=== PATIENT | male | born 1945 | race Caucasian/White ===

== ENCOUNTER → 2018-10-10 08:17 | Outpatient (CLI) | payer MEDICARE, SELFPAY ==
[2018-10-10 09:29] LABS: Alanine Aminotransferase 23 IU/L (21-72); Albumin 4.2 g/dL (3.5-5.0); Albumin Globulin Ratio 1.4 (1.0-2.8); Alkaline Phosphatase 61 U/L (38-126); Aspartate Aminotransferase 21 IU/L (17-59); BUN Creatinine Ratio 23.8 (6-22); Bilirubin Total 0.8 mg/dL (0.2-1.3); Blood Urea Nitrogen 19 mg/dL (9-20); Calcium 9.6 mg/dL (8.4-10.2); Carbon Dioxide 25 mmol/L (22-32); Chloride 108 mmol/L (98-107); Cholesterol 228 mg/dL (140-199); Estimated Glomerular Filt Rate > 60.0 mL/min (>60); Glucose 117 mg/dL (80-110); HDL Cholesterol 47 mg/dL (40-60); HEMOLYSIS < 15 (0-50); LDL Cholesterol Calculated 164 mg/dL (<100); Potassium 4.4 mmol/L (3.4-5.1); Sodium 143 mmol/L (137-145); Total Protein 7.2 g/dL (6.3-8.2); Triglycerides 87 mg/dL (35-150)
[2018-10-10 10:00] LABS: Prostate Specific Antigen Scrn 1.88 ng/mL (0.1-4.0)
== END ==
PROVIDERS: PCP Internal Medicine; Visit Provider Internal Medicine
DX: E03.0 Congenital hypothyroidism with diffuse goiter (principal); E78.00 Pure hypercholesterolemia, unspecified; Z12.5 Encounter for screening for malignant neoplasm of prostate
CPT/HCPCS: 36415; 80053; 80061; G0103

== ENCOUNTER 2019-04-28 14:27 | Observation (INO) | payer MEDICARE, SELFPAY ==
[2019-04-28] VITALS (16 sets, daily range): BP systolic 150–182; BP diastolic 78–94; PULSE 69–99; RESP 9–18; TEMP 35.8–37; O2SAT 94–100; BMI 29.9
--- NOTE | 2019-04-28 14:41 | DI.CT.S_ITS ---
PROCEDURE: CT ABDOMEN PELVIS W CON INDICATIONS: Right lower quadrant abdominal pain TECHNIQUE: After the administration of intravenous contrast, 5 mm thick sections acquired from the diaphragm to the symphysis. 5 mm coronal and sagittal reformats were acquired. For radiation dose reduction, the following was used: automated exposure control, adjustment of mA and/or kV according to patient size. COMPARISON: None. FINDINGS: Image quality: Excellent. ABDOMEN: Lung bases: Lung bases are clear. Heart size is normal. Solid organs: Liver is normal in size and enhancement. Gallbladder is within normal limits. Common hepatic duct measures 16 mm diameter. Common bile duct measures 9 mm diameter. There are multiple high density foci within the common hepatic and common bile duct, largest of which is in the distal common bile duct measuring 10 mm. Pancreas enhances normally. Spleen is normal in size and enhancement. No adrenal nodules. Kidneys demonstrate normal size and enhancement, without hydronephrosis. Nonobstructing 3 mm calculus within the inferior pole left kidney. Excess are present bilaterally. Peritoneum and bowel: Small hiatal hernia. Mildly distended distal ileum within the right inguinal hernia. 27 mm diameter diverticulum of the 2nd portion of the duodenum. Bowel loops demonstrate otherwise normal wall thickness and caliber. No free fluid or air. Appendix not seen. No evidence of appendicitis. Nodes and vessels: No retroperitoneal or mesenteric adenopathy by size criteria. Aorta and inferior vena cava are normal in size. Miscellaneous: No ventral hernias. PELVIS: Genitourinary: Bladder wall thickness is normal. Miscellaneous: There is a 63 mm diameter right internal hernia containing a loop of distal small bowel. There is mild distention of the herniated distal ileum measuring 24 mm. Bones: No suspicious bony lesions. No vertebral body compression fractures. IMPRESSION: 1. Right inguinal hernia containing a loop of distal ileum, which is mildly distended, suggestive of incarceration. No significant proximal small bowel dilatation to indicate long-standing obstruction. 2. Multiple choledocholiths associated with intrahepatic and extrahepatic biliary ductal dilatation. 3. Nonobstructing left renal calculus. 4. Small hiatal hernia. Dictated by: Alla Booth M.D. on 04/28/2019 at 15:16 Approved by: Alla Booth M.D. on 04/28/2019 at 15:21
--- NOTE | 2019-04-28 14:41 | ED.EXTPRO ---
HPI - Extremity Problem General Chief complaint: Extremity Problem,Nontraumatic Stated complaint: Groin Pain Time Seen by Provider: 04/28/19 14:30 Source: patient and EMS Mode of arrival: EMS Limitations: no limitations History of Present Illness HPI Narrative: 73-year-old male brought in by EMS for right groin pain. Patient states that earlier today he had an onset of right groin pain. States that was a fairly sudden onset. No urinary symptoms. No bowel symptoms. Has never had anything like this in the past. Does not radiate to his testicle. That the potentially had a kidney stone although he has never had 1 of these in the past. Has not tried anything for symptoms prior to arrival. Had a very difficult time getting into the EMS gurney secondary to pain and moving his right hip. No trauma Related Data Home Medications Medication Instructions Recorded Confirmed ACETAMINOPHEN 650 mg PO Q6HP #0 02/05/12 simvastatin 10 mg PO QDAY #0 02/05/12 Allergies Allergy/AdvReac Type Severity Reaction Status Date / Time Sulfa (Sulfonamide Allergy Unknown Unverified 04/28/19 14:33 Antibiotics) SULFA Allergy Unknown Uncoded 07/05/17 13:03 Review of Systems Constitutional Constitutional: Denies fatigue and Denies frequent falls Cardiovascular Cardiovascular: Denies chest pain and Denies dyspnea Respiratory Respiratory: Denies dyspnea Gastrointestinal Gastrointestinal: Reports abdominal pain, Denies change in stool character, Denies diarrhea, Denies nausea and Denies vomiting Genitourinary Genitourinary: Denies dysuria Comments: Right groin pain Musculoskeletal Musculoskeletal: Denies myalgias and Denies arthralgias Integumentary/Breasts Skin/Breast: Denies lesions and Denies rash Neurologic Neurologic: Denies behavioral changes and Denies frequent falls Psychiatric Psychiatric: Denies behavioral changes Endocrine Endocrine: Denies fatigue Hematologic/Lymphatic Hematologic/Lymphatic: Denies easy bleeding and Denies easy bruising Patient History Surgical History No pertinent past surgical history (Acute) Social History Smoking Status: Never smoker Smoking Status: Never smoker alcohol intake frequency: 0-2 drinks per day Substance Use Type: does not use Exam Initial Vital Signs Initial Vital Signs: Vital Signs Temperature 97.5 F L 04/28/19 14:30 Pulse Rate 72 04/28/19 14:30 Respiratory Rate 18 04/28/19 14:30 Blood Pressure 182/88 H 04/28/19 14:30 Pulse Oximetry 98 04/28/19 14:30 Const General: cooperative, comfortable, well developed and well groomed Limitations: mental status not altered HENMT Head: normal to inspection and normocephalic Neck Neck: no meningeal signs Resp Effort & Inspection: normal respiratory effort Cardio Rate: regular rate GI Inspection: non-distended Palpation: soft and No firm Other: Tender right inguinal area with what appears to be bowel External: normal external exam and circumcised Penis: normal penis Scrotum: scrotum normal Testes: normal Skin Lesions: no lesions Rashes: no rashes Neuro General: alert and awake Cognition: normal cognition Speech: speech normal Extrem General: normal to inspection and capillary refill normal Psych Appearance: grossly normal and well kempt Scores GCS Yariel coma scale eye opening: Spontaneous Yariel coma scale verbal response: Orientated Coffey coma scale motor response: Obey commands Yariel coma scale total score: 15 Course Orders Ordered: ED Orders 04/28/19 14:30 Complete Blood Count AUTO DIFF Stat Comprehensive Metabolic Panel Stat Lipase Stat 04/28/19 14:41 CT abdomen pelvis w con Stat 04/28/19 15:55 Lactate (Lactic Acid) Stat 04/28/19 16:59 Consult to General Surgery Stat Sodium Chloride (Normal Saline 0.9%) 1,000 mls @ 125 mls/hr IV CONT ROBERT Discontinued Medications Hydrocodone Bitart/Acetaminophen ([place] 5/325) 1 tab PO NOW ONE Stop: 04/28/19 15:24 Last Admin: 04/28/19 15:28 Dose: 1 tab Documented by: CVANCE Vital Signs Vital signs: Vital Signs - 8 hr 04/28/19 14:30 04/28/19 15:33 04/28/19 17:08 Temperature 97.5 F L Pulse Rate 72 85 92 H Respiratory Rate 18 16 Blood Pressure 182/88 H Blood Pressure [Left Arm] 169/81 H 160/87 H Pulse Oximetry 98 97 98 MDM - Extremity (Nontraumatic) Lab Data Attestation: I reviewed the patient's lab results. Result diagrams: 04/28/19 14:30 04/28/19 14:30 Labs: Lab Results 04/28/19 04/28/19 04/28/19 Range/Units 14:30 14:30 15:55 WBC 9.1 (4.5-11.0) X10^3/uL RBC 5.28 (4.5-5.9) X10^6/uL Hgb 16.7 (13.5-17.5) g/dL Hct 48.9 (41-53) % MCV 92.6 (80-100) fL MCH 31.6 (26-34) PG MCHC 34.1 (30-36) % RDW 13.9 (11.6-14.8) % Plt Count 171 (150-400) X10^3/uL Neut % (Auto) 83.2 H (50-75) % Lymph % (Auto) 10.9 L (25-40) % [place] % (Auto) 5.2 (3-14) % Eos % (Auto) 0.2 L (2-4) % Baso % (Auto) 0.5 (0-2) % Neut # (Auto) 7600 H (7871-4379) /uL Lymph # (Auto) 1000 L (5374-9287) /uL [place] # (Auto) 500 (0-900) /uL Eos # (Auto) 0 (0-450) /uL Baso # (Auto) 0 (0-100) /uL Sodium 140 (137-145) mmol/L Potassium 4.0 (3.4-5.1) mmol/L Chloride 100 (98-107) mmol/L Carbon Dioxide 27 (22-32) mmol/L BUN 20 (9-20) mg/dL Creatinine 0.80 (0.66-1.25) mg/dL Estimated GFR > 60.0 (>60) mL/min BUN/Creatinine Ratio 25.0 H (6-22) Glucose 161 H (80-110) mg/dL Lactate 2.3 H (0.7-2.1) mmol/L Calcium 9.8 (8.4-10.2) mg/dL Total Bilirubin 0.8 (0.2-1.3) mg/dL AST 28 (17-59) IU/L ALT 30 (<50) IU/L Alkaline Phosphatase 56 (38-126) U/L Total Protein 8.4 H (6.3-8.2) g/dL Albumin 4.7 (3.5-5.0) g/dL Globulin 3.7 (1.7-4.1) g/dL Albumin/Globulin Ratio 1.3 (1.0-2.8) Lipase 98 (23-300) U/L Urine Dip Bedside Urine Glucose 250 mg/dl Bedside Urine Bilirubin - Negative Bedside Urine Ketone + 15 Urine Specific [place] 1.020 Bedside Urine Occult Blood - Negative Bedside Urine pH 5.5 Bedside Urine Protein - Negative Bedside Urine Urobilinogen - Negative Bedside Urine Nitrite - Negative Bedside Urine Leukocytes - Negative Esterase Imaging Data CT scan - abdomen/pelvis: Radiologist's Impression: Right inguinal hernia containing a loop of distal ileum, which is mildly distended, suggestive of incarceration. No significant proximal small bowel dilation to indicate longstanding obstruction Multiple choledocholithiasis associated with intrahepatic and extrahepatic biliary ductal dilation Nonobstructing left renal calculus Small hiatal hernia MDM Narrative Medical decision making narrative: Patient is nontoxic. CT scan concerning for right-sided incarcerated inguinal hernia. This does fit with his physical exam. Discussed the case with Dr. Fajardo who will come and evaluate the patient in the emergency department. Discussed the admission with the patient. He expressed understanding and agreement. Discharge Plan Departure Patient Disposition: Admitted as Observation Clinical Impression: Incarcerated inguinal hernia
[2019-04-28 14:57] LABS: Add Manual Diff / Slide Review NO; Basophils Absolute Auto 0 /uL (0-100); Basophils Percent Auto 0.5 % (0-2); Eosinophils Absolute Auto 0 /uL (0-450); Eosinophils Percent Auto 0.2 % (2-4); Hematocrit 48.9 % (41-53); Hemoglobin 16.7 g/dL (13.5-17.5); Lymphocytes Absolute Auto 1000 /uL (1100-4500); Lymphocytes Percent Auto 10.9 % (25-40); Mean Corpuscular HGB Conc 34.1 % (30-36); Mean Corpuscular Hemoglobin 31.6 PG (26-34); Mean Corpuscular Volume 92.6 fL (80-100); Monocytes Absolute Auto 500 /uL (0-900); Monocytes Percent Auto 5.2 % (3-14); Neutrophils Absolute Auto 7600 /uL (1500-7000); Neutrophils Percent Auto 83.2 % (50-75); Platelet Count 171 X10^3/uL (150-400); Red Blood Cell Count 5.28 X10^6/uL (4.5-5.9); Red Cell Distribution Width 13.9 % (11.6-14.8); White Blood Cell Count 9.1 X10^3/uL (4.5-11.0)
[2019-04-28 15:12] LABS: Alanine Aminotransferase 30 IU/L (<50); Albumin 4.7 g/dL (3.5-5.0); Albumin Globulin Ratio 1.3 (1.0-2.8); Alkaline Phosphatase 56 U/L (38-126); Aspartate Aminotransferase 28 IU/L (17-59); Bilirubin Total 0.8 mg/dL (0.2-1.3); Blood Urea Nitrogen 20 mg/dL (9-20); Calcium 9.8 mg/dL (8.4-10.2); Carbon Dioxide 27 mmol/L (22-32); Chloride 100 mmol/L (98-107); Estimated Glomerular Filt Rate > 60.0 mL/min (>60); Globulin 3.7 g/dL (1.7-4.1); Glucose 161 mg/dL (80-110); HEMOLYSIS < 15 (0-50); Lipase 98 U/L (23-300); Sodium 140 mmol/L (137-145); Total Protein 8.4 g/dL (6.3-8.2)
[2019-04-28] MEDS: HYDROCODONE/ACET 5/325 TABLET 1 TAB PO (15:28)
[2019-04-28 16:13] LABS: Lactate (Lactic Acid) 2.3 mmol/L (0.7-2.1)
[2019-04-28] MEDS: SODIUM CHLORIDE 0.9% 1,000 ML 125 ML IV (17:29)
[2019-04-28 17:55] LABS: Reflexed Lactate in 2 Hours Y
--- NOTE | 2019-04-28 18:00 | PM.HP.1 ---
History of Present Illness History of Present Illness Date Patient Seen: 04/28/19 Time Patient Seen: 18:01 Chief complaint: Groin Pain Narrative: This is a 73-year-old man with a chronic right inguinal hernia for many years who presents to the emergency room with acute onset of right groin pain. Associated mild nausea no emesis. He was examined in the emergency room which demonstrated a bulge within his groin CT was performed which demonstrates an incarcerated right inguinal hernia containing bowel. Attempt was made to reduce it by the ER staff prior to my arrival this was unsuccessful. He has no significant past medical history. No history of coronary artery disease, valvular disease, arrhythmia, peripheral vascular disease, diabetes, stroke, pulmonary or renal insufficiency. They are a nonsmoker and not on anticoagulation. He tolerated anesthesia previously for tonsillectomy. Patient History Surgical History Hx of tonsillectomy (Acute) No pertinent past surgical history (Acute) Family & Social History Safety & Behavioral: Feels Safe in Current Yes Environment Been Physically Hurt or No Threatened By a Person Tobacco & Substance use: Smoking Status Never smoker alcohol intake frequency 0-2 drinks per day Substance Use Type does not use Meds Home Medications and Allergies Home Medications Medication Instructions Recorded Confirmed Type ACETAMINOPHEN 650 mg PO Q6HP #0 02/05/12 History simvastatin 10 mg PO QDAY #0 02/05/12 History Allergies Allergy/AdvReac Type Severity Reaction Status Date / Time Sulfa (Sulfonamide Allergy Unknown Verified 04/28/19 17:29 Antibiotics) SULFA Allergy Unknown Uncoded 04/28/19 17:29 Review of Systems Review of Systems Narrative: A 10 point review of systems is negative except as noted in the HPI Exam Vital Signs (past 8 hours): - 04/28/19 14:30 04/28/19 15:33 04/28/19 17:08 Temperature 97.5 F L Pulse Rate 72 85 92 H Respiratory Rate 18 16 Blood Pressure 182/88 H Blood Pressure [Left Arm] 169/81 H 160/87 H Pulse Oximetry 98 97 98 Oxygen Delivery Method Room Air Narrative Exam Narrative: General-no acute distress, well nourished HEENT-moist mucous membranes, no scleral icterus Neck-supple, no lymphadenopathy Chest- non labored respirations, clear to auscultation bilaterally Cardiac-regular rate no peripheral edema Abdomen-right groin bulge moderately tender to palpation unable to reduce Extremities-warm, well perfused Neurological-alert and oriented, no focal deficits Objective Labs Result Diagrams: 04/28/19 14:30 04/28/19 14:30 Labs: Laboratory Results - last 24 hr 04/28/19 04/28/19 04/28/19 14:30 14:30 15:55 WBC 9.1 RBC 5.28 Hgb 16.7 Hct 48.9 MCV 92.6 MCH 31.6 MCHC 34.1 RDW 13.9 Plt Count 171 Neut % (Auto) 83.2 H Lymph % (Auto) 10.9 L [place] % (Auto) 5.2 Eos % (Auto) 0.2 L Baso % (Auto) 0.5 Neut # (Auto) 7600 H Lymph # (Auto) 1000 L [place] # (Auto) 500 Eos # (Auto) 0 Baso # (Auto) 0 Sodium 140 Potassium 4.0 Chloride 100 Carbon Dioxide 27 BUN 20 Creatinine 0.80 Estimated GFR > 60.0 BUN/Creatinine Ratio 25.0 H Glucose 161 H Lactate 2.3 H Calcium 9.8 Total Bilirubin 0.8 AST 28 ALT 30 Alkaline Phosphatase 56 Total Protein 8.4 H Albumin 4.7 Globulin 3.7 Albumin/Globulin Ratio 1.3 Lipase 98 Assessment & Plan Assessment and plan (1) Incarcerated inguinal hernia: Current visit: Yes Status: Acute Assessment & Plan narrative: 73-year-old man with a acutely incarcerated right inguinal hernia containing bowel for the past several hours.. Nontoxic no peritonitis afebrile. White blood cell count 9. I reviewed his CT which demonstrates a incarcerated right inguinal hernia containing bowel. We discussed the nature of hernia disease and its surgical therapy. I explained to him that my recommendation is that we proceed with an open right inguinal hernia repair with mesh. We discussed the risks of the operation including bleeding infection recurrence chronic pain infertility in testicular ischemia. His questions have been answered he is in agreement with this plan will proceed. -NPO IV fluids -Ancef -observation postop
--- NOTE | 2019-04-28 18:07 | PC.NURSE ---
felt warm, no fever, denies vomiting, denies injuries, denies lifting or with severe coughing.
[2019-04-28] MEDS: LACTATED RINGERS 1,000 ML 100 ML IV ×2 (18:30→19:35)
[2019-04-28] MEDS: CEFAZOLIN 2 GM/100 ML FROZ.PIGGY IV (18:30)
--- NOTE | 2019-04-28 19:00 | SUR.OPER ---
Supine on padded OR bed, head on pillow, arms secured on padded arm boards at <90 degrees abduction, legs uncrossed, safety belt at thigh, pillow x1 under knees, tape over blanket over lower legs.
[2019-04-28] MEDS: BUPIVACAINE 0.25% (PF) VIAL 30 ML INJ (19:37)
--- NOTE | 2019-04-28 20:28 | PM.OP.1 ---
Operative Date/Time/Diagnoses Date of procedure: 04/28/19 Time of procedure: 20:29 Pre-op diagnosis: Incarcerated right inguinal hernia Post-op diagnosis: same Procedure & Clinicians Procedure: Open right inguinal hernia repair with mesh Same procedure as scheduled: Yes Indications: This is a 73-year-old male with a chronic oral right inguinal hernia presents with acute incarceration. Nontoxic admission afebrile no peritonitis CT demonstrates a incarcerated right inguinal hernia Surgeon: Artie Michaels Yes if Unassisted: Yes Anesthesia Type: General Operative Notes Findings: Chronic right inguinal hernia with large disruption of the floor. Both direct and indirect components Estimated Blood Loss (mL): 50 Procedure in detail: The patient was brought to the operating room placed supine on the table. Bilateral lower extremity compression devices were applied. General anesthesia was induced and he was intubated with endotracheal tube. He was then prepped and draped in sterile fashion. A time-out was performed ensure the correct patient procedure necessary equipment within the operating room. He received 2 g of Ancef prior to skin incision. Incision in the right groin between the pubic tubercle towards the ASIS was made. The subcutaneous tissues were divided. The external oblique aponeurosis was identified I he was significantly attenuated and was opened along the direction of its fibers. There was a large chronic appearing hernia. Near the pubic tubercle the cord structures were freed from the canal floor and encircled with a Victor Hugo. The cord structures were then skeletonized the vas deferens and the testicular vessels were identified and protected and there was a indirect component which was then dissected back to the internal inguinal ring. The hernia sac was then ligated here using Vicryl suture. A cord lipoma was also resected here. With the indirect component addressed I turned my attention to the hernia floor. The hernia for floor was completely disrupted fluid consistent with chronic hernia. I did extend the incision above and below in order to gain adequate exposure as well as place a Bookwalter self-retaining retractor. The loop of bowel was protruding through the floor and this was carefully reduced back into the abdomen. Using interrupted PDS suture the floor of the inguinal canal was then reapproximated a by joining the shelving edge of the inguinal ligament to the transversalis fascia. With the floor now reapproximated a large parietec mesh was selected. Was anchored to the pubic tubercle using 0 Prolene. The the superior edge of the mesh was then fashion to the transversalis using interrupted PDS suture. The inferior aspect of the mesh was then approximated to the shelving edge of the inguinal ligament and again using PDS suture. The tails were reapproximated around the spermatic cord loosely. Hemostasis was obtained. Next the remnants of the obliterated external oblique were reapproximated using a running 3 0 Vicryl suture. The subcutaneous tissues were then reapproximated using Vicryl suture. The skin was irrigated and infiltrated with 0.25% bupivacaine. The skin was then closed using won. The end of the procedure ensured the both testicles were within the scrotum. The patient tolerated the procedure well. He was extubated and transferred to the postoperative care unit in stable condition. Complications: none Post-operative Condition: stable Disposition: Acute Care
--- NOTE | 2019-04-28 20:40 | SUR.PHASEI ---
Pt awake and oriented, talking, tolerating ice chiips well. Report called to VASU Mcdonald. Discussing pain tolerance, , etc. cane to the room with him.
[2019-04-28] MEDS: SODIUM CHLORIDE 0.9% 1,000 ML 100 ML IV (20:58)
--- NOTE | 2019-04-28 21:07 | SUR.PHASEI ---
2047 to room 217 on O2 at 2LNP, bed down and locked, call light within reach, SCDs on, dressing remains CDI with ice pack in place. hand off to staff, pt awake, oriented, talking and smiling. Knows to request Rx when local begins to wear off. O2 sat 100% on 2Lnp, reduced to 1LNP; No questions from staff or pt. VSS
--- NOTE | 2019-04-29 02:45 | PC.NURSE ---
0020 Patient is alert and oriented. Breath sounds CTA with RA sat of 99%. HRR. Does have consistently elevated BP with currently reading of 156/94. Denies nausea. BT present but denies any flatus as yet. Voiding per urinal; urine is clear, light yellow and patient denies any dysuria, frequency or urgency. Dressing to right abdomen/groin is CDI. States pain is minimal at 2/10 and achy but declines pain medication; does have ice pack to area for comfort. Assisted to reposition in bed and instructed to call for assistance if needed. Educated in CDB and splinting of incision. Wearing bilateral calf SCD's and NICOEL stockings placed at this time. Has not yet been out of bed but reports he uses a cane at home. Has had no falls in past 3 months but fall risk score is moderate and bed alarm is activated for night time safety.
[2019-04-29 04:45] VITALS: BP 134/73; PULSE 95; RESP 19; TEMP 36.5; O2SAT 95
[2019-04-29] MEDS: SODIUM CHLORIDE 0.9% 1,000 ML 100 ML IV (06:36)
[2019-04-29 08:00] VITALS: BP 147/86; PULSE 102; RESP 18; TEMP 37.5; O2SAT 97
[2019-04-29 09:00] VITALS: O2SAT 97
[2019-04-29] MEDS: OXYCODONE/ACETAMINOPHEN 5/325 TABLET 1 TAB PO (09:44)
[2019-04-29] MEDS: ENOXAPARIN 40 MG/0.4 ML SYRINGE SUBCUT (09:45)
--- NOTE | 2019-04-29 11:50 | PC.NURSE ---
Pt rates pain 2-3/10 to abdomen; PO oxycodone administered prior to discharge; BTs present, passing gas; incision to right groin well-approximated with won, casey-skin pink; MD removed drsg at 830 and left open to air; LS clear, RA; pt reminded several times to cough/deep breath with pillow brace; room for d/c instructions; pt transferred to personal vehicle with personal belongings in hand via wheelchair.
--- NOTE | 2019-04-29 13:57 | CM.DANOTE ---
DCP/Assessment: Reviewed chart. patient is a 73yr old male admitted to [facility] with groin pain. PCP is Dr. Amaya. Primary payor is 1)Medicare 2)[employer]. Attempted to meet with patient however, he had already discharged. RN reports patient I in ADL's with no identified d/c planning needs. P: Home today. PITO Garcia Discharge Planning/Care Management CM Discharge Assessment Start: 04/29/19 13:55 Freq: Status: Active Protocol: Document 04/29/19 13:55 KJS (Rec: 04/29/19 13:57 [id number]) Discharge Planning Assessment Assigned Revenue Coordinator PITO Garcia Contact Information Jenni Ott (spouse) Advance Directives? Yes History Provided By Medical Record Prior Living Arrangements House Household Members spouse Type of transporation used prior to Drives own vehicle admit Independent with ADL's Yes Is patient alert and oriented? Yes Barriers to Discharge No Transportation Arrangement Family Referrals Initiated None needed Whiteboard Updated in Patient Room with No name and ext. # of Revenue Coordinator Review Status In Process Next Review Type Continued Stay Review
--- NOTE | 2019-04-29 16:45 | P.DS_ITS ---
History of Present Illness History of Present Illness Chief complaint: Groin Pain Narrative: This is a 73-year-old man with a chronic right inguinal hernia for many years who presents to the emergency room with acute onset of right groin pain. Associated mild nausea no emesis. He was examined in the emergency room which demonstrated a bulge within his groin CT was performed which demonstrates an incarcerated right inguinal hernia containing bowel. Attempt was made to reduce it by the ER staff prior to my arrival this was unsuccessful. He has no significant past medical history. No history of coronary artery disease, valvular disease, arrhythmia, peripheral vascular disease, diabetes, stroke, pulmonary or renal insufficiency. They are a nonsmoker and not on anticoagulation. He tolerated anesthesia previously for tonsillectomy. Discharge Providers Provider Date of admission: 04/28/19 17:59 Discharge Date: 04/29/19 Primary care physician: Aquilino Amaya MD Consults: 04/28/19 16:59 Consult to General Surgery Stat Comment: Consulting Provider: Artie Fajardo Reason for consultation: Incarcerated hernia Has provider been notified: Yes Discharge provider: Artie Fajardo MD Summary Hospital Course Discharge Diagnosis: Incarcerated right inguinal hernia Hospital Course: This is a 71-year-old male who presented to the hospital with a incarcerated right inguinal hernia. He is taken to the operating room underwent a open right inguinal hernia repair with mesh. He remained in the hospital overnight for observation. He did well tolerated diet pain was well controlled is ambulatory and ready for discharge. Exam Vital Signs (past 8 hours): - 04/29/19 09:00 Pulse Oximetry 97 Oxygen Delivery Method Room Air Oxygen Flow Rate 0 Narrative Exam Narrative: General adult male alert oriented no acute distress Chest nonlabored respiration Abdomen right groin incision clean dry intact with won. Objective Labs Result Diagrams: 04/28/19 14:30 04/28/19 14:30 Discharge Plan Discharge Plan Patient Disposition: Home Discharge orders & Medications Prescriptions: Continued atorvastatin 10 mg Tablet 10 mg PO DAILY RF: 0 acetaminophen [Tylenol Arthritis Pain] 650 mg Tablet Extended Release 1,300 mg PO Q8H PRN (Reason: Pain, Moderate) RF: 0 naproxen sodium [Aleve] 220 mg Capsule 440 mg PO BID PRN (Reason: Pain, Moderate) RF: 0 Follow up/Referrals: Artie Fajardo MD [Physician] - Aquilino Amaya MD [Primary Care Provider] - Diet/Activity/Treatments Diet: Regular Activity: No lifting >20 lbs x 4 weeks. Walking only for exercise for [address] while taking narcotics. Skin/Wound/Dressing Care Report to your healthcare provider any signs of infection, such as:: chills, fever, increased pain, unusual drainage and unusual redness Visit Report/Discharge Packet Instructions: DI for Hernia Repair, [employer] [facility]: Wound Care Discharge Data Primary Care Provider: Aquilino Amaya Attending Provider: Artie Fajardo Admit Date/Time: 04/28/19 17:59 Discharges patient from system. Discharge Date/Time: 04/29/19 11:30 Quality VTE Deep Vein Thrombosis/Pulmonary Embolism Present on Admission: No
== END 2019-04-29 11:30 | disposition home or self-care (01) ==
LOC: ED 16:59 → AC 18:00
PROVIDERS: Admitting Provider Surgery; Emergency Provider Emergency Medicine; PCP Internal Medicine; Referring Provider Surgery; Visit Provider Surgery
PROC: (CPT 49507; principal; 2019-04-28 18:10)
DX: K40.30 Unilateral inguinal hernia, with obstruction, without gangrene, not specified as recurrent (principal); R10.31 Right lower quadrant pain; D17.6 Benign lipomatous neoplasm of spermatic cord
CPT/HCPCS: 49507; 36415; 49505; 74177; 80053; 81003; 83605; 83690; 85025; 96360; 96361; 96372; 99220; 99284; C1781; G0378; J0690; J1650; Q9967

== ENCOUNTER → 2021-08-03 11:14 | Outpatient (CLI) | payer MEDICARE, SELFPAY ==
[2019-04-28 21:39] VITALS: BMI 29.9
[2021-08-03 14:06] LABS: Influenza A - CEPHEID Flu A NEGATIVE (NEGATIVE); Influenza B - CEPHEID Flu B NEGATIVE (NEGATIVE)
[2021-08-03 14:23] LABS: COVID-19 CEPHEID PCR (VTM/NP) Negative (Negative)
== END ==
PROVIDERS: PCP Internal Medicine; Visit Provider Physician Assistant
DX: R11.2 Nausea with vomiting, unspecified (principal)
CPT/HCPCS: 0240U

== ENCOUNTER → 2023-04-03 09:53 | Outpatient (CLI) | payer MEDICARE, SELFPAY ==
[2019-04-28 21:39] VITALS: BMI 29.9
--- NOTE | 2023-04-03 09:55 | DI.US.S_ITS ---
PROCEDURE: US ABDOMEN LIMITED INDICATIONS: RIGHT UPPER QUADRANT DISCOMFORT AND NAUSEA TECHNIQUE: Real-time scanning was performed of the abdominal and retroperitoneal organs, with image documentation. COMPARISON: None. FINDINGS: Liver: Liver is not well evaluated secondary to overlying bowel gas. Gallbladder: Gallbladder is prominent size measuring 7.5 x 4.2 x 3.3 centimeters. Sludge is seen in the neck and mid gallbladder. Gallstone in the neck measuring 1.5 centimeters, nonmobile. No gallbladder wall thickening. No pericholecystic fluid or sonographic Lara sign. Biliary ducts: Intrahepatic bile ducts are non-dilated. Extrahepatic bile duct caliber measures 5.4 mm. Normal is 6-7 mm or less in diameter, or 10 mm or less post-cholecystectomy. Pancreas: Visualized portions of the pancreas are sonographically normal. Evaluation is limited secondary to overlying bowel gas. Right Kidney: Mild right renal hydronephrosis. Punctate echogenic foci within the right kidney measuring up to 4 millimeters. Probable right renal simple cyst measuring 1.1 centimeters. Miscellaneous: No free abdominal fluid. IMPRESSION: 1. Gallstones and sludge seen. The gallbladder is prominent in size. No gallbladder wall thickening or pericholecystic fluid. 2. No biliary ductal dilatation. The proximal common bile duct measures 5.4 millimeters. The mid and distal common bile duct is not well seen. 3. Mild right hydronephrosis with several punctate echogenic foci within the right kidney measuring up to 4 millimeters, may represent stones. No obstructing stones are seen. 4. Limited evaluation of the liver and pancreas secondary to overlying bowel gas. Dictated by: Thuan Lee M.D. on 04/03/2023 at 13:29 Approved by: Thuan Lee M.D. on 04/03/2023 at 13:35
== END ==
LOC: US 09:54
PROVIDERS: PCP Physician Assistant; Referring Provider Physician Assistant; Visit Provider Physician Assistant
DX: K80.20 Calculus of gallbladder without cholecystitis without obstruction (principal); K82.8 Other specified diseases of gallbladder; N13.30 Unspecified hydronephrosis; R10.11 Right upper quadrant pain; R11.0 Nausea
CPT/HCPCS: 76705

== ENCOUNTER 2023-04-19 08:21 | Day surgery (SDC) | payer MEDICARE, SELFPAY ==
[2023-04-05 14:41] VITALS: BMI 29.9
[2023-04-11 15:13] VITALS: BMI 21.5
[2023-04-19] VITALS (10 sets, daily range): BP systolic 110–157; BP diastolic 60–79; PULSE 67–94; RESP 10–21; TEMP 35.9–36.4; O2SAT 95–99; BMI 20.2
--- NOTE | 2023-04-19 | PATH_ITS ---
[facility] Accession Number: [id number] No. of containers..01 Tissue . 01 Material submitted: . gallbladder - GALLBLADDER . 01 Diagnosis: Gallbladder, Cholecystectomy: Mild chronic, calculous cholecystitis with reactive changes. Negative for significant atypia and malignancy. [facility] 04/24/2023 1334 Local . 01 Electronically signed: . Luis E Corbett MD, Pathologist NPI- [id number] . 01 Gross description: . The specimen is received in formalin labeled with the patient's name, , and gallbladder, consists of a disrupted gallbladder measuring 7.4 x 2.4 x 1.2 cm with violaceous, roughened serosa. The cystic duct margin is inked blue, and no pericystic lymph node is identified. The lumen contains multiple black roughened calculi measuring up to 0.7 cm in greatest dimension grossly obstructing the cystic duct. No bile is identified. The mucosa is javed and velvety with no discoloration, polyps, or lesions identified. The camara average 0.3 cm thick. Vacuum Spindle Sander sections are submitted to include the cystic duct margin and full thickness sections are submitted in cassette A1. ([id number]) /MRV 04/20/2023 1627 Local . 01 Pathologist provided ICD-10: K80.10 . 01 CPT . 426182 Performed at: 01 [facility] [address] [place] [address], [place], [place] [id number] MD Adan Sharma MD Phone: [phone]
[2023-04-19] MEDS: LACTATED RINGERS 1,000 ML 21 ML IV ×2 (09:32→12:20)
--- NOTE | 2023-04-19 10:29 | PM.PREOP ---
Pre-operative Note Interval Note History & Physical reviewed/Exam performed by Physician: Yes Changes to H&P: No
--- NOTE | 2023-04-19 11:03 | PM.PN.1 ---
Subjective Subjective Interval history: Refusal of blood products due to synagogue reasons: 77yo healthy male. Patient has been made aware of the risks of the refusal of blood products. These risks include cardiac events search as CT and up to . Patient, spouse (Healthcare agent), and José Miguel Agustin (Successor healthcare agent) are aware of these risks and are choosing to accept them and proceed with the procedure. Exam Vital Signs (past 8 hours): - 04/19/23 09:33 Temperature 97.6 F Pulse Rate 79 Respiratory Rate 16 Blood Pressure 138/73 Pulse Oximetry 99 Oxygen Delivery Method Room Air Oxygen Delivery Method Room Air [facility] Medical History (Updated 04/11/23 @ 13:52 by Artie Fajardo MD) Incarcerated inguinal hernia Surgical History (Updated 04/11/23 @ 15:16 by Ciara Martinez RN) H/O right inguinal hernia repair (04/2019) Hx of tonsillectomy Family History Mother Colon cancer Social History marital status: household members: spouse lives independently: Yes occupational status: previously employed Smoking Status: Former smoker alcohol intake: current substance use type: does not use
[2023-04-19] MEDS: CEFAZOLIN 2 GM/100 ML PREMIX 100 ML IV (11:31)
--- NOTE | 2023-04-19 11:59 | SUR.OPER ---
Supine on padded OR bed, head on pillow, left arm secured on padded arm board at <90 degrees abduction, legs uncrossed, safety belt at thigh, tape over blanket over lower legs. left arm padded and tucked at patients side
[2023-04-19] MEDS: BUPIVACAINE 0.25% (PF) VIAL 30 ML INJ (12:32)
--- NOTE | 2023-04-19 13:08 | PM.OP.1 ---
Operative Date/Time/Diagnoses Date of procedure: 04/19/23 Time of procedure: 10:00 Pre-op diagnosis: Chronic cholecystitis Procedure & Clinicians Procedure: Laparoscopic cholecystectomy Same procedure as scheduled: Yes Indications: 77-year-old man with chronic cholecystitis here for elective laparoscopic cholecystectomy Surgeon: Artie Fajardo Click Yes if Unassisted: Yes Anesthesia Type: General Operative Notes Findings: Acute on chronic cholecystitis. Foreshortened cystic duct Intrahepatic and contracted gallbladder Specimen(s): other (Gallbladder) Estimated Blood Loss (mL): 50 Procedure in detail: Patient was brought to the operating room placed supine on the table. Bilateral lower extremity compression devices were applied. General anesthesia was induced and he was intubated with an endotracheal tube. He received 2 g of Ancef prior to skin incision. He was then prepped and draped in sterile fashion time-out was performed. An infraumbilical incision was made the fascia was elevated incised and the abdomen was entered atraumatically. Pneumoperitoneum was established in general inspection of the abdomen was made. Additional 5 mm working ports were placed in the right upper quadrant as well as an 11 mm high in the epigastrium. The gallbladder was chronically inflamed there was a dense layer of omentum overlying the gallbladder which was taken down and this revealed that the duodenum was adherent to the midbody of the gallbladder. The duodenum was dissected off of the gallbladder using sharp and blunt dissection no cautery. The hepatocystic triangle was skeletonized using blunt dissection. We identified the cystic duct and cystic artery directly entering the gallbladder with the liver in the background. The common bile duct was clearly observed and the cystic duct was extremely foreshortened, however we were able to get 2 clips on the stay side and 1 on the gallbladder. The cystic duct was then divided using sharp dissection. The cystic artery was then divided in similar fashion. We then worked to remove the gallbladder from the fossa using electrocautery. It was an contracted and intrahepatic gallbladder. The gallbladder was entered and there was thick purulent discharge from it. The posterior wall was quite adherent and so a portion of the back wall was left in place. The abdomen was then copiously lavaged with 4 L of fluid which returned clear. The umbilical fascia was then closed with a Vicryl in [id number] fashion and the skin closed with Monocryl followed by the application of Dermabond Complications: none Post-operative Condition: stable Disposition: same day surgery
[2023-04-19] MEDS: OXYCODONE IR 5 MG TABLET PO ×2 (13:19→13:51)
--- NOTE | 2023-04-19 13:53 | SUR.PHASEII ---
Pt with pain 6/10 to abdomen. See new order from Dr Perez for IV Tylenol.
[2023-04-19] MEDS: ACETAMINOPHEN IV 1,000 MG/100 ML VIAL 400 MG IV (14:11)
[2023-04-19] MEDS: ONDANSETRON 4 MG/2 ML INJ IV (14:11)
--- NOTE | 2023-04-19 14:19 | SUR.PHASEII ---
Pt with moderate amt of bloody phlem from throat. Very slight nausea. Lungs clear and diminished throughout. Incentive Spirometer up to 500ml. Dr Perez to bedside. Updated. No new orders at this time.
[2023-04-19] MEDS: SIMETHICONE 80 MG TABLET PO (15:26)
--- NOTE | 2023-04-19 15:27 | SUR.PHASEII ---
Pt up to bedside. Walked. Steady on feet. No longer dizzy. States ready to go home. Given simethecone for gas pain.
--- NOTE | 2023-04-19 15:28 | SUR.PHASEII ---
Sputum clear x2. No blood.
== END 2023-04-19 15:35 | disposition home or self-care (01) ==
PROVIDERS: PCP Physician Assistant; Referring Provider Surgery; Visit Provider Surgery
PROC: 0FT44ZZ Resection of Gallbladder, Percutaneous Endoscopic Approach (ICD-10-PCS; CPT 47562; principal; 2023-04-19 10:15)
DX: K80.10 Calculus of gallbladder with chronic cholecystitis without obstruction (principal)
CPT/HCPCS: 47562; 82962; J0136; J0690; J2250; J2405; J2704; J3010; J3490